=== PATIENT | male | born 2000 | race Caucasian/White ===

== ENCOUNTER → 2020-09-19 | Outpatient (CLI) | payer BC | LOC: RAD 13:37 | DX: M25.532 Pain in left wrist (principal); M79.642 Pain in left hand; W01.198A Fall on same level from slipping, tripping and stumbling with subsequent striking against other object, initial encounter | CPT/HCPCS: 73110; 73130 ==

== ENCOUNTER → 2020-11-28 | Outpatient (CLI) | payer BC | LOC: CT 15:30 | DX: R59.1 Generalized enlarged lymph nodes (principal) | CPT/HCPCS: 70491; Q9967 ==